=== PATIENT | male | born 1955 | race Caucasian/White ===

== ENCOUNTER 2023-12-24 14:23 | Emergency (ER) | payer MEDICARE, OTHER, SELFPAY ==
--- NOTE | ~2023-12-24 | XR_ITS ---
EXAMINATION: XR FOOT, RIGHT CLINICAL INFORMATION: Fall. Pain. COMPARISON: None available. TECHNIQUE: Three views of the right foot. FINDINGS: There is a transverse fracture through the calcaneus. Fracture extends longitudinally from the posterior calcaneus to the mid body to the anterior calcaneus at the calcaneal cuboid articulation. Vertical fracture line extends to the inferior posterior cortex. Severe degenerative change of the first metatarsal phalangeal joint. Joint narrowing subchondral sclerosis and cystic changes and marginal bone spurs. XR/XR foot RT min 3V IMPRESSION: Calcaneal fracture. Electronically signed by: Jos Brambila MD 12/24/2023 04:16 PM EDT
--- NOTE | ~2023-12-24 | XR_ITS ---
EXAMINATION: XR ANKLE, LEFT CLINICAL INFORMATION: Fall from height on the foot COMPARISON: None available. TECHNIQUE: AP, lateral, and mortise views of the left ankle. FINDINGS: There is comminuted fracture through the calcaneus, better visualized on a blank view and lateral view. The rest of bones reveals no fractures. The changes of osteoarthritis at the first metatarsophalangeal joint XR/XR ankle LT min 3V IMPRESSION: Cochlear fracture Electronically signed by: Elier Silva MD 12/24/2023 04:10 PM EDT
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
--- NOTE | ~2023-12-24 | XR_ITS ---
EXAMINATION: XR HIP, RIGHT CLINICAL INFORMATION: Pain. Injury. COMPARISON: None available. TECHNIQUE: Two views of the right hip. FINDINGS: No fracture. No dislocation. Mild to moderate joint narrowing. Small marginal bone spurs of the femoral head superior laterally. XR/XR hip RT min 2V IMPRESSION: 1. No acute abnormality. 2. Mild to moderate degenerative joint disease of the hip. Electronically signed by: Jos Brambila MD 12/24/2023 04:19 PM EDT
--- NOTE | ~2023-12-24 | CT_ITS ---
EXAMINATION: CT FOOT WITHOUT CONTRAST, LEFT CLINICAL INFORMATION: Calcaneal fracture COMPARISON: X-ray 12/24/2023 TECHNIQUE: Axial imaging. Sagittal and coronal reconstructions. FINDINGS: The vendor relationship manager images are labeled as left. The multiplanar sequences labeled as the left foot are reviewed. Acute, markedly comminuted extensive calcaneal fracture. The fracture planes includes a longitudinal fracture plane through the calcaneus extending from the posterior calcaneus to the mid body and through the anterior calcaneus through the articular surface of the calcaneus-cuboid joint. There also is an oblique fracture plane in the mid calcaneal body, which proximally extends to the medial cortex of the calcaneus, and superiorly extends through the articular surface into the posterior subtalar joint. There is associated displacement present. At the posterior subtalar joint, at the articular surface there is displacement of approximately 0.7 cm. There are multiple additional comminuted fracture planes extending to the superior cortex, inferior cortex, as well as through the posterior cortex of the posterior calcaneus. The comminuted fracture planes are extending to the subtalar articulation. There is plantar and posterior calcaneal spurring. There is an ill-defined lucency in the distal aspect of the lateral tibial plafond, possibly extending to the articular surface, from possible nondisplaced fracture. No acute displaced fibular fracture is seen. Ill-defined lucencies in the superior aspect of the proximal cuboid, concerning for a nondisplaced fracture. No additional acute displaced fracture is seen. 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 There is soft tissue swelling and subcutaneous edema present. The Achilles tendon is grossly intact. Limited evaluation of the ankle tendons on CT. CT/CT foot LT wo IV con IMPRESSION: Acute, markedly comminuted, extensive calcaneal fracture, with intra-articular extension as detailed above. Question undisplaced fracture of the lateral aspect of the distal tibial plafond, with possible intra-articular extension. Suspected acute fracture of the superior aspect of the proximal cuboid. No additional acute displaced fracture is identified.If there is clinical concern for radiographically occult fracture, soft tissue and ligamentous injury, additional/follow-up imaging is recommended. Arthritic changes as detailed above. Soft tissue swelling and subcutaneous edema. Electronically signed by: Jose Castaneda MD 12/24/2023 07:10 PM EDT RP
--- NOTE | ~2023-12-24 | CT_ITS ---
EXAMINATION: CT CERVICAL SPINE WITHOUT CONTRAST CLINICAL INFORMATION: Neck injury and pain COMPARISON: None available. TECHNIQUE: Multiple 2.0 mm axial images were obtained from base of skull to T1 levels without IV contrast enhancement. Sagittal and coronal 2.0 mm bone window images were reconstructed from axial image data. This CT examination was performed using dose optimization techniques as appropriate, variously including the following: *Automated exposure control *Adjustment of mA and/or kV according to patient size (this includes techniques or standardized protocols for targeted exams where dose is matched to indication/reason for exam; i.e. extremities or head) *Use of iterative reconstruction technique DLP: 279.39 mGy-cm FINDINGS: C1/C2: Bony structures are intact with normal alignment. Marked atlantoaxial joint osteoarthritis with marked loss of joint space, subcortical cystic erosions in the anterior C1 arch and the odontoid process is seen. There is no spinal stenosis. C2/C3: Bony structures are intact with normal alignment. There is no spinal stenosis. There is marked left C2/C3 neural foraminal stenosis. Bilateral apophyseal joints are intact with normal alignment. C3/C4: Bony structures are intact with mild kyphosis. There is no spinal stenosis. There is marked asymmetric left C3/C4 neural foraminal stenosis. Bilateral apophyseal joints are intact with normal alignment. C4/C5: Bony structures are intact with anterior C4 on C5 displacement by 0.2 cm. There is no spinal stenosis. There is moderate asymmetric right C4/C5 neural foraminal stenosis. Bilateral apophyseal joints are intact with normal alignment. C5/C6: Bony structures are intact with normal alignment. There is mild decrease in intervertebral disc heights. Sharp anterior syndesmophytes are present. There is no spinal stenosis. Bilateral C5/C6 neuroforamina are moderately stenosed. Bilateral apophyseal joints are intact with normal alignment. C6/C7: Bony structures are intact with normal alignment. There is marked decrease in intervertebral disc height. Anterior bridging syndesmophytes are present. There is no spinal stenosis. Bilateral C6/C7 neuroforamina are markedly stenosed. Bilateral apophyseal joints are intact with normal alignment. C7/T1: Bony structures are intact with normal alignment. There is no spinal stenosis. Bilateral C7/T1 neuroforamina are patent. Bilateral apophyseal joints are intact with normal alignment. Multilevel bilateral apophyseal joint and uncovertebral joint osteoarthritis with loss of joint space, sclerosis, facet hypertrophy and osteophytosis are seen. CT/CT cervical spine wo IV con IMPRESSION: 1. No evidence of acute fracture or dislocation in the cervical spine. 2. Marked atlantoaxial joint osteoarthritis. 3. Multilevel bilateral apophyseal joint and uncovertebral joint osteoarthritis. 4. Marked left C2/C3, left C3/C4, moderate right C4/C5, moderate bilateral C5/C6 and marked bilateral C6/C7 neural foraminal stenosis. 5. Grade 1 C4-C5 anterolisthesis. Electronically signed by: Queta Davis MD 12/24/2023 04:40 PM EDT
--- NOTE | ~2023-12-24 | XR_ITS ---
EXAMINATION: XR KNEE, RIGHT CLINICAL INFORMATION: Pain in the right knee following trauma COMPARISON: None available. TECHNIQUE: Four views of the right knee. FINDINGS: No fracture or joint effusion. Alignment is anatomic. Joint spaces are maintained. No abnormal soft tissue calcification. XR/XR knee RT 3V IMPRESSION: Normal right knee. Electronically signed by: Elier Silva MD 12/24/2023 04:27 PM EDT RP
--- NOTE | ~2023-12-24 | CT_ITS ---
EXAMINATION: CT LUMBAR SPINE CLINICAL INFORMATION: Lumbar spine injury and pain COMPARISON: None available. TECHNIQUE: Multiple 2.0 mm axial images of the lumbar spine were obtained from lower T12 to S1 levels without IV contrast enhancement. Bone window and soft tissue window images were reconstructed. Coronal and Sagittal bone window images were also reconstructed from the axial image data. This CT examination was performed using dose optimization techniques as appropriate, variously including the following: *Automated exposure control *Adjustment of mA and/or kV according to patient size (this includes techniques or standardized protocols for targeted exams where dose is matched to indication/reason for exam; i.e. extremities or head) *Use of iterative reconstruction technique DLP: 437 mGy-cm FINDINGS: The visualized lumbar vertebrae are intact with normal alignment. T12/L1: Bony structures are intact with normal alignment. Intervertebral disc height is normal. Bilateral neuroforamina are patent. Bilateral apophyseal joints are intact with normal alignment. L-1/L-2: Bony structures are intact with normal alignment. Intervertebral disc height is normal. Bilateral neuroforamina are patent. Bilateral apophyseal joints are intact with normal alignment. L2/L3: Bony structures are intact with normal alignment. Intervertebral disc height is normal. Mild posterior disc protrusion is present. Bilateral neuroforamina are patent. Bilateral apophyseal joints are intact with normal alignment. L3/L4: Bony structures are intact with normal alignment. Intervertebral disc height is moderately decreased, with vacuum disc phenomenon. Sharp right lateral bridging syndesmophytes are present. Bilateral neuroforamina are patent. Bilateral apophyseal joints are intact with normal alignment. Bilateral apophyseal joints show loss of joint space, sclerosis, facet hypertrophy and osteophytosis. L4/L5: Bony structures are intact with normal alignment. Intervertebral disc height is markedly decreased. Mild posterior disc protrusion is present. Large sharp anterior and bilateral bridging syndesmophytes are present. Bilateral neuroforamina are patent. Bilateral apophyseal joints are intact with normal alignment. Bilateral apophyseal joints show loss of joint space, sclerosis, facet hypertrophy and osteophytosis. L5/S1: Bony structures are intact with normal alignment. Intervertebral disc height is markedly decreased, with vacuum disc phenomenon. Bilateral neuroforamina are patent. Bilateral apophyseal joints are intact with normal alignment. Bilateral apophyseal joints show loss of joint space, sclerosis, facet hypertrophy and osteophytosis. CT/CT lumbar spine wo IV con IMPRESSION: 1. No evidence of acute fracture or dislocation of the lumbar spine. 2. Advanced degenerative disc disease at L3-L4, L4-L5 and L5-S1 levels. 3. Mild posterior disc protrusion at L2-L3 and L4-L5 levels. 4. 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 Electronically signed by: Queta Davis MD 12/24/2023 04:58 PM EDT
--- NOTE | ~2023-12-24 | XR_ITS ---
EXAMINATION: XR ANKLE, RIGHT CLINICAL INFORMATION: Fall. Ankle pain. COMPARISON: None available. TECHNIQUE: Three views of the right ankle. FINDINGS: No fracture of the medial or lateral malleolus. Ankle mortise is congruent. Transverse mildly displaced fracture of the calcaneus. XR/XR ankle RT min 3V IMPRESSION: Transverse mildly displaced fracture of the calcaneus. Electronically signed by: Jos Brambila MD 12/24/2023 04:16 PM EDT
--- NOTE | ~2023-12-24 | XR_ITS ---
EXAMINATION: XR FOOT, LEFT CLINICAL INFORMATION: Fall. COMPARISON: None available. TECHNIQUE: Three views of the left foot. FINDINGS: Mildly displaced transverse fracture through the calcaneus. Fracture extends from the posterior calcaneal cortex through the mid body to the calcaneal cuboid articulation. There is a vertical component extending to the inferior posterior cortex of the calcaneus. 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 Joint narrowing subchondral sclerosis and cystic changes and large marginal bone spurs at this joint space. XR/XR foot LT min 3V IMPRESSION: 1. Mildly displaced transverse fracture through the calcaneus. 2. 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 Electronically signed by: Jos Brambila MD 12/24/2023 04:18 PM EDT
--- NOTE | ~2023-12-24 | CT_ITS ---
EXAMINATION: CT FOOT WITHOUT CONTRAST, RIGHT CLINICAL INFORMATION: Calcaneal fracture COMPARISON: X-ray 12/24/2023 TECHNIQUE: Axial imaging. Sagittal and coronal reconstructions. This CT examination was performed using dose optimization techniques as appropriate, variously including the following: *Automated exposure control *Adjustment of mA and/or kV according to patient size (this includes techniques or standardized protocols for targeted exams where dose is matched to indication/reason for exam; i.e. extremities or head) *Use of iterative reconstruction technique DLP: 191 mGy-cm FINDINGS: The medical assisting program director images are labeled as the right extremity. The individual sequences labeled as a right lower extremity are reviewed. Markedly comminuted fracture of the calcaneus. The fracture plane includes a longitudinally oriented fracture plane extending from the posterior calcaneus to the midbody and distally extending into the anterior calcaneus, through the articular surface to the calcaneal- cuboid joint. Additional multiple comminuted fracture planes are present, with the fracture planes extending to the inferior cortex, the superior cortex as well as extending posteriorly through the posterior cortex of the posterior calcaneus. The comminuted fracture planes extend superiorly into the subtalar articulation. There is associated displacement present. No acute displaced fracture is identified of the tibia or fibula. No acute displaced talar fracture is identified. No displaced fracture is seen of the navicular, cuboid, cuneiforms. Severe first MTP arthritis. No acute displaced fracture is identified in the forefoot. The tarsometatarsal alignment appears maintained. There is soft tissue swelling and subcutaneous edema. The Achilles tendon is grossly intact. Evaluation of the ankle tendons is limited by CT. The proximal portion of the tendons grossly appear intact. CT/CT foot RT wo IV con IMPRESSION: Acute, markedly comminuted, displaced, extensive calcaneal fracture, with intra-articular extension as detailed above. Severe first MTP arthritis. No additional acute fracture is identified. If there is clinical concern for a radiographically occult fracture, soft tissue/ligamentous injury, additional/follow-up imaging is recommended. Electronically signed by: Jose Castaneda MD 12/24/2023 07:11 PM EDT
--- NOTE | ~2023-12-24 | XR_ITS ---
EXAMINATION: XR HIP, LEFT CLINICAL INFORMATION: Pain in left hip COMPARISON: None available. TECHNIQUE: AP pelvis and 2 views of left hip of the left hip. FINDINGS: No fracture. Alignment is anatomic. Hip joint space is maintained. Soft tissues are unremarkable. XR/XR hip LT w PEL1V IMPRESSION: Normal left hip. Electronically signed by: Elier Silva MD 12/24/2023 04:26 PM EDT
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
[2023-12-24 14:44] VITALS: BP 175/86; PULSE 95; RESP 16; TEMP 36.8; O2SAT 95; BMI 24.4
--- NOTE | 2023-12-24 14:49 | ED_ITS ---
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 please follow up with them.) [facility] [place], [place] Primary [facility] [Provider Group] (Call to establish and follow up with a primary care provider. If you already have a primary care provider, please follow up with them.) [facility] [place] [facility] [Provider Group] (Call to establish and follow up with an orthopedic provider. ) Stand Alone Forms: Work/School Release Print Language: Upper Sorbian
[2023-12-24] MEDS: Ketorolac Tromethamine 15 MG/ML VIAL IM (17:26)
[2023-12-24] MEDS: Buprenorphine/Naloxone 8/2 mg FILM 1 FILM SUBLINGUAL ×2 (17:36)
[2023-12-24 18:09] VITALS: BP 175/86; PULSE 95; RESP 16; TEMP 36.8
--- NOTE | 2023-12-24 18:42 | PC.NURSE ---
Upon Discharge PT received Crutch training, Patient was not able to stand or use crutches properly pt was struggling and started to slide and gait was unsteady, assisted pt back on stretcher. SHERIDAN diaz met with patient plan is now for PT case management evaluation.
--- NOTE | 2023-12-24 19:01 | PHA.MEDREC ---
Pharmacy Consult ? Medication Reconciliation Pharmacy has reviewed the medication reconciliation completed by nursing by using claims.
--- NOTE | 2023-12-24 19:48 | MHC.EDTECH ---
[place] and [place] given to patient
[2023-12-24] MEDS: Atorvastatin Calcium 20 MG TABLET PO (21:56)
[2023-12-24] MEDS: Acetaminophen 325 MG TABLET 975 MG PO (21:56)
--- NOTE | 2023-12-24 22:47 | MHC.CM.ED ---
CM met with patient at the request of Haylee SWARTZ. Pt feel 4 feet off a fence after being stung by multiple bees. He was trimming a hedge and cut the bees nest. Pt fractured bilateral calcaneal fx, left worse than right. Pt is non-weight bearing. Ortho will see patient as an outpatient. Referred to [facility]. Pt may need surgery. Pt is retired. Lives with his . Uses no DME/services. Pt drives and is independent. His PCP is Dr. Shauna Read at [facility]. Unsure of HCP status. , Rashmi Gautam ([phone]). Pt is on Suboxone. Pt has been recovered for many years. PT is pending. Referrals will be made to acute rehabs. Pt has Medicare A&B and HNE is a secondary. Pt is aware that he needs to call ortho for an appointment, next available. GARFIELD johansen follow for discharge planning.
[2023-12-25 00:20] VITALS: RESP 16
[2023-12-25] MEDS: NaPROXEN 500 MG TABLET PO (02:11)
--- NOTE | 2023-12-25 05:05 | PC.NURSE ---
Patient upset tonight that he doesn't have PRN medication ordered for pain. Texting ED providers for pain medications has been a slow process. Patient has been waiting almost an hour for this dose. Previously had to wait a while for Naproxen. Charge nurse notified that I have been asking for pain meds for this gentlemen and she will look into it.
[2023-12-25] MEDS: Acetaminophen 325 MG TABLET 975 MG PO (05:21)
[2023-12-25 06:23] VITALS: BP 143/75; PULSE 61; RESP 16; TEMP 36.3; O2SAT 97
[2023-12-25] MEDS: Venlafaxine HCl ER 75 MG CAP.ER.24H PO (08:21)
[2023-12-25] MEDS: amLODIPine Besylate 5 MG TABLET PO (08:21)
[2023-12-25] MEDS: lamoTRIgine 100 MG TABLET PO (08:21)
[2023-12-25] MEDS: Buprenorphine/Naloxone 8/2 mg FILM 3 FILM SUBLINGUAL (08:22)
[2023-12-25] MEDS: Venlafaxine HCL 25 MG TABLET PO (08:22)
--- NOTE | 2023-12-25 08:27 | PC.NURSE ---
Patient declined lipitor stating he takes it in the evening, only took 1 strip of suboxone states takes takes 2 strips at 4:30pm, pharmacy aware and will re-schedule
[2023-12-25] MEDS: Ibuprofen 600 MG TABLET PO ×2 (12:50→21:52)
[2023-12-25 14:00] VITALS: BP 153/70; PULSE 72; RESP 18; TEMP 36.9; O2SAT 97
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
--- NOTE | 2023-12-25 14:55 | PC.NURSE ---
Alert and oriented, seen by PT/ Case management regarding rehab options. Medicated per mar with good effect. at bedside , ate well for breakfast and lunch.
[2023-12-25] MEDS: Buprenorphine/Naloxone 8/2 mg FILM 2 FILM SUBLINGUAL (16:23)
--- NOTE | 2023-12-25 17:31 | PC.NURSE ---
Patient stating he wishes to be a full code
[2023-12-25] MEDS: Atorvastatin Calcium 20 MG TABLET PO (20:27)
[2023-12-25] MEDS: Acetaminophen 325 MG TABLET 650 MG PO (20:30)
[2023-12-26 00:08] VITALS: BP 131/71; PULSE 99; RESP 18; TEMP 36.3; O2SAT 100
--- NOTE | 2023-12-26 02:13 | PC.NURSE ---
Patient requesting pain medication , c/o heel pain right greater than left. Medication administered as per mar with good effect. Patient resting quietly, call [facility] within reach.
[2023-12-26] MEDS: Ibuprofen 600 MG TABLET PO ×3 (03:40→19:40)
[2023-12-26 07:35] VITALS: BP 132/79; PULSE 69; RESP 18; TEMP 36.7; O2SAT 97
[2023-12-26] MEDS: Venlafaxine HCl ER 75 MG CAP.ER.24H PO (08:33)
[2023-12-26] MEDS: amLODIPine Besylate 5 MG TABLET PO (08:33)
[2023-12-26] MEDS: Venlafaxine HCL 25 MG TABLET PO (08:33)
[2023-12-26] MEDS: Buprenorphine/Naloxone 8/2 mg FILM 1 FILM SUBLINGUAL (08:34)
[2023-12-26] MEDS: lamoTRIgine 100 MG TABLET PO (08:34)
[2023-12-26] MEDS: Acetaminophen 325 MG TABLET 650 MG PO (08:37)
--- NOTE | 2023-12-26 13:05 | MHC.CM.ED ---
Pt holding in the ED awaiting OT eval and Acute rehab placement secondary to bilateral calcaneus fxs. Pt has Medicare primary and HNE supplemental plan secondary. He does not have a qualifying Medicare stay for STR. Pt has been referred to [facility] should he be able to return to home: no offers have been extended at this time to both acute rehab or [facility]. ED CM to follow. Pt is on Suboxone - does not wish to private pay for SNF.
[2023-12-26 14:00] VITALS: BP 119/63; PULSE 71; RESP 18; O2SAT 99
--- NOTE | 2023-12-26 15:12 | PC.NURSE ---
pt able to xfer self from bed to w/c.
[2023-12-26] MEDS: Buprenorphine/Naloxone 8/2 mg FILM 2 FILM SUBLINGUAL (16:21)
[2023-12-26] MEDS: Magnesium Oxide 400 MG TABLET PO (16:21)
--- NOTE | 2023-12-26 19:00 | PC.NURSE ---
Report received from Pierre BYRNE, assume care of pt at this time
[2023-12-26 21:01] VITALS: BP 140/68; PULSE 72; RESP 16; TEMP 36.8; O2SAT 96
[2023-12-27] MEDS: Atorvastatin Calcium 20 MG TABLET PO (00:54)
[2023-12-27] MEDS: Acetaminophen 325 MG TABLET 650 MG PO (00:54)
--- NOTE | 2023-12-27 01:45 | PC.NURSE ---
resting quietly, with eyes closed, resp with ease, no s/s of acute distress
[2023-12-27] MEDS: Ibuprofen 600 MG TABLET PO ×3 (02:42→15:55)
[2023-12-27 05:57] VITALS: BP 131/71; PULSE 72; RESP 16; TEMP 36.8; O2SAT 96
--- NOTE | 2023-12-27 06:26 | PC.NURSE ---
resting quietly, resp with ease, no s/s of acute distress, will cont plan of care
[2023-12-27] MEDS: Venlafaxine HCL 25 MG TABLET PO (08:49)
[2023-12-27] MEDS: Buprenorphine/Naloxone 8/2 mg FILM 1 FILM SUBLINGUAL (08:49)
[2023-12-27 08:50] VITALS: BP 169/62
[2023-12-27] MEDS: amLODIPine Besylate 5 MG TABLET PO (08:50)
[2023-12-27] MEDS: lamoTRIgine 100 MG TABLET PO (08:52)
[2023-12-27] MEDS: Cholecalciferol (Vitamin D3) 25 MCG TABLET 125 MCG PO (08:52)
[2023-12-27] MEDS: Venlafaxine HCl ER 75 MG CAP.ER.24H PO (08:53)
[2023-12-27] MEDS: Magnesium Oxide 400 MG TABLET PO (08:53)
--- NOTE | 2023-12-27 10:02 | MHC.CM.ED ---
Patient remains in ER overflow. PT and OT recommending acute rehab. [facility] unable to offer a bed. Clinical updates sent to Darshan. Continue to monitor for d/c needs.
[2023-12-27 14:00] VITALS: BP 153/70; PULSE 69; RESP 12; TEMP 37.2; O2SAT 97
--- NOTE | 2023-12-27 14:06 | MHC.CM.ED ---
[facility] is able to accept patient. Patient can leave at 6pm. Cathi JASMINE booked. [facility] with chart. Patient, Chang Caraballo RN and Meryl SWARTZ. Nurse to Nurse will need to be called to [phone]. Continue to monitor for d/c needs.
[2023-12-27] MEDS: Buprenorphine/Naloxone 8/2 mg FILM 2 FILM SUBLINGUAL (15:55)
--- NOTE | 2023-12-27 17:27 | PC.NURSE ---
Report given to Darshan lunaab RN
[2023-12-27 19:11] VITALS: BP 153/70; PULSE 69; RESP 12; TEMP 37.2; O2SAT 97
== END 2023-12-27 19:14 ==
PROVIDERS: Emergency Provider Emergency Medicine
DX: S92.062A Displaced intraarticular fracture of left calcaneus, initial encounter for closed fracture (principal); S92.061A Displaced intraarticular fracture of right calcaneus, initial encounter for closed fracture; X50.1XXA Overexertion from prolonged static or awkward postures, initial encounter; Y93.39 Activity, other involving climbing, rappelling and jumping off; Y92.89 Other specified places as the place of occurrence of the external cause; Y99.9 Unspecified external cause status; Z79.899 Other long term (current) drug therapy
CPT/HCPCS: 29515; 70450; 72125; 72131; 73502; 73562; 73610; 73630; 73700; 96372; 97162; 97166; 97530; 99284; 99285; J1885